=== PATIENT | female | born 1955 | race Caucasian/White ===

== ENCOUNTER 2023-01-14 15:35 | Inpatient (IN) | payer MEDICARE, MEDICAID ==
[~2023-01-14] VITALS: Ht 165.1 cm; Wt 54.0 kg
[~2023-01-14 15:35] MED LIST: ETOMIDATE 2MG/ML 10ML VIAL IV ONE; SUCCINYLCHOLINE CHLORIDE 200MG/10ML IV ONE
[2023-01-14] MEDS ORDERED: EPINEPHRINE 1:1000 1 MG/ML AMP IM ONE (15:45)
[2023-01-14] MEDS ORDERED: FAMOTIDINE 20MG/2ML VIAL IV ONE (15:45)
[2023-01-14] MEDS ORDERED: DIPHENHYDRAMINE 50MG/ML VIAL IV ONE (15:45)
[2023-01-14] MEDS ORDERED: METHYLPREDNISOLONE SOD SUCC 125 MG/2 ML VIAL IV ONE (15:45)
[2023-01-14] MEDS ORDERED: TRANEXAMIC ACID 1,000 MG/10 ML IV ONE (15:45)
[2023-01-14] MEDS ORDERED: ALBUTEROL (0.083%) 2.5MG/3ML NEB HHN SCH (16:00)
[2023-01-14 16:14] LABS: BASOPHILS % 0.3 % (0.0-2.0); EOSINOPHILS % 1.5 % (0.0-5.0); HEMATOCRIT. 34.6 % (36.0-48.0); MEAN CORPUSCULAR HEMOGLOBIN 27.3 pg (28.0-32.0); MEAN CORPUSCULAR VOLUME 85.6 fL (81.0-99.0); MEAN PLATELET VOLUME 10.5 fl (7.4-10.4); MONOCYTES % 8.4 % (2.0-8.0); NEUTROPHILS % 57.8 % (40.0-76.0); PLATELET 245 x1000/uL (130-400); RED BLOOD CELL COUNT 4.04 mill/uL (4.2-5.4); RED CELL DISTRIBUTION WIDTH 16.4 % (11.6-14.6)
[2023-01-14] MEDS ORDERED: PROPOFOL 10MG/ML 100ML 100 ML IV SCH (16:15)
[2023-01-14] MEDS ORDERED: SODIUM CHLORIDE 0.9% 1,000 ML IV ONE (16:15)
[2023-01-14 16:17] LABS: CHLORIDE 108 mEq/L (98-107)
[2023-01-14 16:20] LABS: PROTHROMBIN TIME 10.3 sec (9.6-11.0)
[2023-01-14] MEDS ORDERED: MIDAZOLAM HCL 100 MG in DEXT 5% WATER 80 ML IV ONE (16:45)
[2023-01-14] MEDS ORDERED: HYDRALAZINE 20MG/ML VIAL IV ONE (16:45)
[2023-01-14] MEDS ORDERED: MIDAZOLAM HCL 100 MG in SODIUM CHLORIDE 0.9% 100 ML IV ONE (16:45)
[2023-01-14 16:56] LABS: BG BASE EXCESS -3.5 mmol/L (-2.0-2.0); BG CARBOXYHEMOGLOBIN 0.6 % (0.5-1.5); BG DEOXYHEMOGLOBIN 1.1 % (0.0-5.0); BG FRACTION INSPIRED OXYGEN 100; BG HCO3 ACT 22.2 mmol/L (22.0-26.0); BG METHEMOGLOBIN 0.5 % (0.0-1.5); BG OXYGEN SATURATION 98.9 % (92.0-98.5); BG OXYHEMOGLOBIN 97.8 % (94.0-97.0); BG PCO2 42.2 mmHg (35.0-45.0); BG PH 7.338 (7.350-7.450); BG PO2 158.1 mmHg (75.0-100.0); BG SAMPLE SITE RIGHT RADIAL; BG TOTAL HEMOGLOBIN 10.9 g/dL (12.0-18.0); BG VENT MODE VENT - AC
[2023-01-14] MEDS ORDERED: LORAZEPAM 2MG/ML CPJ IV ONE ×2 (17:00→17:30)
[2023-01-14] MEDS ORDERED: FENTANYL 2500MCG/250ML PMX 250 ML IV ONE ×2 (17:00)
[2023-01-14] MEDS ORDERED: LIDOCAINE HCL/PF 1% 10 MG/ML 5ML VIAL INFIL ONE (18:00)
[2023-01-14] MEDS ORDERED: LIDOCAINE HCL/EPINEPHRINE 1%-EPI 1:100,000 20 ML VIAL INFIL ONE (18:00)
[2023-01-14 18:56] LABS: *AMPHETAMINES SCREEN URINE NEGATIVE (NEGATIVE); *BARBITURATES SCREEN URINE NEGATIVE (NEGATIVE); *BENZODIAZEPINES SCREEN URINE NEGATIVE (NEGATIVE); *COCAINE SCREEN URINE PRESUMTIVE POSITIVE (NEGATIVE); CANNABINOID URINE SCREEN NEGATIVE (NEGATIVE); METHADONE URINE SCREEN NEGATIVE (NEGATIVE); OPIATES URINE SCREEN NEGATIVE (NEGATIVE); PHENCYCLIDINE URINE SCREEN NEGATIVE (NEGATIVE)
[2023-01-14] MEDS ORDERED: PIPERACILLIN/TAZOBACTAM 3.375 G in DEXTROSE 5% WATER 50 ML IV SCH (19:15)
[2023-01-14] MEDS: SODIUM CHLORIDE 0.9% 1,000 ML IV SCH (19:15)
[2023-01-14] MEDS ORDERED: CLONIDINE 0.1MG TABLET PO PRN (19:15)
[2023-01-14] MEDS ORDERED: ONDANSETRON HCL 4MG/2ML INJ IV PRN (19:15)
[2023-01-14] MEDS ORDERED: IPRATROPIUM/ALBUTEROL 0.5-3(2.5)MG/3ML NEB HHN PRN ×2 (19:15→19:45)
[2023-01-14] MEDS ORDERED: DIPHENHYDRAMINE 50MG/ML VIAL IV PRN (19:15)
[2023-01-14] MEDS ORDERED: PIPERACILLIN/TAZ 3.375G PREMIX 50 ML IV ONE (19:45)
[2023-01-14] MEDS ORDERED: PROPOFOL 10MG/ML 100ML 100 ML IV PRN (19:45)
[2023-01-14] MEDS ORDERED: FENTANYL CITRATE/PF 2,500 MCG in SODIUM CHLORIDE 0.9% 200 ML IV PRN (19:45)
[2023-01-14] MEDS ORDERED: MIDAZOLAM HCL 100 MG in SODIUM CHLORIDE 0.9% 80 ML IV PRN (19:45)
[2023-01-14] MEDS ORDERED: VANCOMYCIN 1G PREMIX 200 ML IV ONE (19:45)
[2023-01-14] MEDS ORDERED: VANCOMYCIN 1G PREMIX 200 ML IV NR (21:00)
[2023-01-14] MEDS: METHYLPREDNISOLONE SOD SUCC 125 MG/2 ML VIAL IV SCH (22:08)
[2023-01-14] MEDS: PIPERACILLIN/TAZOBACTAM 3.375G in DEXT 5% WATER 50ML IV SCH (22:22)
[2023-01-14 23:50] VITALS: BP 111/69
[2023-01-15] VITALS (92 sets, daily range): BP systolic 32–229; BP diastolic 18–124
[2023-01-15] MEDS: IPRATROPIUM/ALBUTEROL 0.5-3(2.5)MG/3ML NEB HHN SCH ×5 (00:53→20:59)
[2023-01-15] MEDS: METHYLPREDNISOLONE SOD SUCC 125 MG/2 ML VIAL IV SCH ×4 (04:54→22:08)
[2023-01-15] MEDS: PIPERACILLIN/TAZOBACTAM 3.375G in DEXT 5% WATER 50ML IV SCH ×4 (05:15→23:27)
[2023-01-15] MEDS: MIDAZOLAM HCL 100 MG in SODIUM CHLORIDE 0.9% 80 ML IV PRN (05:35)
[2023-01-15 05:38] LABS: BASOPHILS % 0.1 % (0.0-2.0); HEMATOCRIT. 28.8 % (36.0-48.0); HEMOGLOBIN. 9.1 g/dL (12.0-16.0); LYMPHOCYTES % 7.1 % (20.0-50.0); MEAN CORPUSCULAR HEMOGLOBIN 27.6 pg (28.0-32.0); MEAN CORPUSCULAR VOLUME 86.9 fL (81.0-99.0); MEAN PLATELET VOLUME 10.2 fl (7.4-10.4); NEUTROPHILS % 86.8 % (40.0-76.0); PLATELET 169 x1000/uL (130-400); RED BLOOD CELL COUNT 3.31 mill/uL (4.2-5.4); RED CELL DISTRIBUTION WIDTH 16.2 % (11.6-14.6)
[2023-01-15 05:46] LABS: CHLORIDE 106 mEq/L (98-107)
[2023-01-15] MEDS ORDERED: POTASSIUM CHLORIDE INJ 40 MEQ in DEXT 5% WATER 250 ML IV ONE (07:00)
[2023-01-15] MEDS ORDERED: KCL 20MEQ/100ML X 2 FOR TOTAL KCL 40MEQ/200ML IV NR ×2 (07:00→08:45)
[2023-01-15 08:47] LABS: BG BASE EXCESS -0.9 mmol/L (-2.0-2.0); BG CARBOXYHEMOGLOBIN 0.4 % (0.5-1.5); BG DEOXYHEMOGLOBIN 0.9 % (0.0-5.0); BG FRACTION INSPIRED OXYGEN 60; BG HCO3 ACT 23.6 mmol/L (22.0-26.0); BG METHEMOGLOBIN 0.3 % (0.0-1.5); BG OXYGEN SATURATION 99.1 % (92.0-98.5); BG OXYHEMOGLOBIN 98.4 % (94.0-97.0); BG PCO2 38.2 mmHg (35.0-45.0); BG PH 7.408 (7.350-7.450); BG PO2 146.2 mmHg (75.0-100.0); BG SAMPLE SITE RIGHT RADIAL; BG TOTAL HEMOGLOBIN 8.6 g/dL (12.0-18.0); BG VENT MODE VENT - AC VC
[2023-01-15 09:52] LABS: CLARITY URINE CLEAR (CLEAR); COLOR URINE YELLOW (YELLOW); KETONES URINE NEGATIVE (NEGATIVE); LEUKOCYTE ESTERASE URINE NEGATIVE (NEGATIVE); NITRITE URINE NEGATIVE (NEGATIVE); OCCULT BLOOD URINE NEGATIVE (NEGATIVE); PROTEIN URINE 2+ (NEGATIVE); UROBILINOGEN URINE 0.2 E.U./dL (0.2-1.0)
[2023-01-15] MEDS ORDERED: POTASSIUM CHLORIDE INJ 40 MEQ in SODIUM CHLORIDE 0.9% 250 ML IV SCH (10:00)
[2023-01-15] MEDS: FAMOTIDINE 20MG/2ML VIAL IV SCH (10:43)
[2023-01-15] MEDS: FENTANYL 2500MCG/250ML PMX 250 ML IV PRN (15:12)
[2023-01-15] MEDS: SODIUM CHLORIDE 0.9% 1,000 ML IV SCH (15:14)
[2023-01-15] MEDS: DIPHENHYDRAMINE 50MG/ML VIAL IV SCH (17:52)
[2023-01-15] MEDS ORDERED: DIPHENHYDRAMINE 50MG/ML VIAL IV SCH (18:00)
[2023-01-15] MEDS: VANCOMYCIN 750MG PREMIX 150 ML IV SCH (21:00)
[2023-01-15] MEDS ORDERED: LIDOCAINE HCL 1% 10 MG/ML 10ML VIAL IJ NR (22:30)
[2023-01-16] VITALS (59 sets, daily range): BP systolic 124–217; BP diastolic 53–124
[2023-01-16] MEDS: IPRATROPIUM/ALBUTEROL 0.5-3(2.5)MG/3ML NEB HHN SCH ×6 (00:40→20:24)
[2023-01-16] MEDS: DIPHENHYDRAMINE 50MG/ML VIAL IV SCH ×4 (02:46→21:02)
[2023-01-16] MEDS: PIPERACILLIN/TAZOBACTAM 3.375G in DEXT 5% WATER 50ML IV SCH ×3 (05:05→21:01)
[2023-01-16] MEDS: METHYLPREDNISOLONE SOD SUCC 125 MG/2 ML VIAL IV SCH ×4 (05:06→22:09)
[2023-01-16 05:30] LABS: HEMATOCRIT. 26.4 % (36.0-48.0); HEMOGLOBIN. 8.3 g/dL (12.0-16.0); MEAN CORPUSCULAR HEMOGLOBIN 27.6 pg (28.0-32.0); MEAN CORPUSCULAR VOLUME 87.9 fL (81.0-99.0); MEAN PLATELET VOLUME 10.2 fl (7.4-10.4); PLATELET 171 x1000/uL (130-400); RED BLOOD CELL COUNT 3.01 mill/uL (4.2-5.4); RED CELL DISTRIBUTION WIDTH 16.4 % (11.6-14.6)
[2023-01-16 07:34] LABS: BG CARBOXYHEMOGLOBIN 0.1 % (0.5-1.5); BG DEOXYHEMOGLOBIN 0.6 % (0.0-5.0); BG FRACTION INSPIRED OXYGEN 50; BG HCO3 ACT 23.1 mmol/L (22.0-26.0); BG METHEMOGLOBIN 0.4 % (0.0-1.5); BG OXYGEN SATURATION 99.4 % (92.0-98.5); BG OXYHEMOGLOBIN 98.9 % (94.0-97.0); BG PCO2 35.4 mmHg (35.0-45.0); BG PEEP (cmH2O) 0 cmH2O; BG PH 7.432 (7.350-7.450); BG PO2 216.7 mmHg (75.0-100.0); BG SAMPLE SITE RIGHT RADIAL; BG TOTAL HEMOGLOBIN 8.4 g/dL (12.0-18.0); BG VENT MODE VENT - AC/VC
[2023-01-16] MEDS: FAMOTIDINE 20MG/2ML VIAL IV SCH (09:05)
[2023-01-16] MEDS: MIDAZOLAM HCL 100 MG in SODIUM CHLORIDE 0.9% 80 ML IV PRN (09:06)
[2023-01-16] MEDS: FENTANYL 2500MCG/250ML PMX 250 ML IV PRN (09:44)
[2023-01-16 11:02] LABS: PLATELET ESTIMATE NORMAL
[2023-01-16] MEDS: SODIUM CHLORIDE 0.9% 1,000 ML IV SCH (15:15)
[2023-01-16] MEDS: HYDRALAZINE 20MG/ML VIAL IV PRN (16:52)
[2023-01-16] MEDS: VANCOMYCIN 750MG PREMIX 150 ML IV SCH (21:02)
[2023-01-17] VITALS (51 sets, daily range): BP systolic 144–210; BP diastolic 64–118
[2023-01-17] MEDS: IPRATROPIUM/ALBUTEROL 0.5-3(2.5)MG/3ML NEB HHN SCH ×6 (00:39→20:12)
[2023-01-17 05:13] LABS: HEMATOCRIT. 26.1 % (36.0-48.0); HEMOGLOBIN. 8.2 g/dL (12.0-16.0); MEAN CORPUSCULAR HEMOGLOBIN 27.1 pg (28.0-32.0); MEAN CORPUSCULAR VOLUME 85.9 fL (81.0-99.0); MEAN PLATELET VOLUME 9.9 fl (7.4-10.4); PLATELET 215 x1000/uL (130-400); RED BLOOD CELL COUNT 3.04 mill/uL (4.2-5.4); RED CELL DISTRIBUTION WIDTH 16.5 % (11.6-14.6)
[2023-01-17] MEDS: PIPERACILLIN/TAZOBACTAM 3.375G in DEXT 5% WATER 50ML IV SCH ×2 (05:59→13:28)
[2023-01-17] MEDS: MIDAZOLAM HCL 100 MG in SODIUM CHLORIDE 0.9% 80 ML IV PRN ×3 (06:04→17:15)
[2023-01-17 07:25] LABS: BG BASE EXCESS -2.5 mmol/L (-2.0-2.0); BG CARBOXYHEMOGLOBIN 0.3 % (0.5-1.5); BG DEOXYHEMOGLOBIN 3.1 % (0.0-5.0); BG FRACTION INSPIRED OXYGEN 40; BG HCO3 ACT 21.8 mmol/L (22.0-26.0); BG METHEMOGLOBIN 0.3 % (0.0-1.5); BG OXYGEN SATURATION 96.9 % (92.0-98.5); BG OXYHEMOGLOBIN 96.3 % (94.0-97.0); BG PCO2 35.3 mmHg (35.0-45.0); BG PEEP (cmH2O) 0 cmH2O; BG PH 7.408 (7.350-7.450); BG PO2 95.1 mmHg (75.0-100.0); BG SAMPLE SITE RIGHT RADIAL; BG TOTAL HEMOGLOBIN 9.6 g/dL (12.0-18.0); BG VENT MODE VENT - AC/VC
[2023-01-17] MEDS: HYDRALAZINE 20MG/ML VIAL IV PRN ×3 (08:58→22:53)
[2023-01-17] MEDS: FAMOTIDINE 20MG/2ML VIAL IV SCH (08:58)
[2023-01-17] MEDS: DIPHENHYDRAMINE 50MG/ML VIAL IV SCH ×2 (08:59→17:12)
[2023-01-17] MEDS: METHYLPREDNISOLONE SOD SUCC 125 MG/2 ML VIAL IV SCH ×3 (09:04→22:21)
[2023-01-17 09:39] LABS: PLATELET ESTIMATE NORMAL
[2023-01-17] MEDS ORDERED: LIDOCAINE HCL 1% 10 MG/ML 10ML VIAL ONE (12:43)
[2023-01-17] MEDS: SODIUM CHLORIDE 0.9% 1,000 ML IV SCH (13:28)
[2023-01-17] MEDS: FENTANYL 2500MCG/250ML PMX 250 ML IV PRN (15:47)
[2023-01-17] MEDS ORDERED: VANCOMYCIN 500MG PREMIX 100 ML IV SCH (23:00)
[2023-01-18] VITALS (42 sets, daily range): BP systolic 128–215; BP diastolic 63–100
[2023-01-18] MEDS: IPRATROPIUM/ALBUTEROL 0.5-3(2.5)MG/3ML NEB HHN SCH ×6 (00:11→20:37)
[2023-01-18] MEDS: DIPHENHYDRAMINE 50MG/ML VIAL IV SCH ×3 (03:34→18:06)
[2023-01-18] MEDS: METHYLPREDNISOLONE SOD SUCC 125 MG/2 ML VIAL IV SCH ×2 (03:44→09:16)
[2023-01-18] MEDS: HYDRALAZINE 20MG/ML VIAL IV PRN ×3 (04:10→19:37)
[2023-01-18] MEDS ORDERED: LABETALOL 5MG/ML SYR 20 MG/4 ML SYRINGE IV NR (05:15)
[2023-01-18 05:40] LABS: HEMATOCRIT. 25.9 % (36.0-48.0); HEMOGLOBIN. 8.4 g/dL (12.0-16.0); LYMPHOCYTES % 7.5 % (20.0-50.0); MEAN CORPUSCULAR HEMOGLOBIN 27.7 pg (28.0-32.0); MEAN CORPUSCULAR VOLUME 85.5 fL (81.0-99.0); MEAN PLATELET VOLUME 9.8 fl (7.4-10.4); MONOCYTES % 5.7 % (2.0-8.0); NEUTROPHILS % 86.8 % (40.0-76.0); PLATELET 218 x1000/uL (130-400); RED BLOOD CELL COUNT 3.03 mill/uL (4.2-5.4); RED CELL DISTRIBUTION WIDTH 16.3 % (11.6-14.6)
[2023-01-18] MEDS: AMLODIPINE 10MG TABLET PO SCH (09:14)
[2023-01-18] MEDS: KCL 20MEQ/100ML PREMIX 100 ML IV SCH ×2 (09:16→11:25)
[2023-01-18] MEDS: FAMOTIDINE 20MG/2ML VIAL IV SCH (09:16)
[2023-01-18] MEDS ORDERED: SODIUM CHLORIDE 0.9% 1,000 ML IV SCH (09:30)
[2023-01-18] MEDS ORDERED: ISOSORBIDE MONONITRATE 30MG TABLET SR 24HR PO SCH (10:15)
[2023-01-18] MEDS: METHYLPREDNISOLONE SOD SUCC 40 MG/ML VIAL IV SCH ×2 (12:06→23:58)
[2023-01-18] MEDS ORDERED: HYDRALAZINE 20MG/ML VIAL IV SCH (13:00)
[2023-01-18] MEDS: MIDAZOLAM HCL 100 MG in SODIUM CHLORIDE 0.9% 80 ML IV PRN (13:26)
[2023-01-18] MEDS ORDERED: METOPROLOL TARTRATE 5MG/5ML VIAL IV SCH (18:00)
[2023-01-18] MEDS: FENTANYL 2500MCG/250ML PMX 250 ML IV PRN (18:07)
[2023-01-19] VITALS (55 sets, daily range): BP systolic 145–217; BP diastolic 63–103
[2023-01-19] MEDS: LABETALOL 5MG/ML SYR 20 MG/4 ML SYRINGE IV PRN ×2 (00:05→13:41)
[2023-01-19] MEDS: IPRATROPIUM/ALBUTEROL 0.5-3(2.5)MG/3ML NEB HHN SCH ×6 (00:15→21:35)
[2023-01-19] MEDS: HYDRALAZINE 20MG/ML VIAL IV PRN ×3 (00:58→11:47)
[2023-01-19] MEDS: DIPHENHYDRAMINE 50MG/ML VIAL IV SCH ×3 (01:02→17:46)
[2023-01-19 05:30] LABS: HEMATOCRIT. 27.9 % (36.0-48.0); HEMOGLOBIN. 8.7 g/dL (12.0-16.0); MEAN CORPUSCULAR HEMOGLOBIN 26.8 pg (28.0-32.0); MEAN CORPUSCULAR VOLUME 86.1 fL (81.0-99.0); MEAN PLATELET VOLUME 9.6 fl (7.4-10.4); PLATELET 218 x1000/uL (130-400); RED BLOOD CELL COUNT 3.24 mill/uL (4.2-5.4); RED CELL DISTRIBUTION WIDTH 16.4 % (11.6-14.6)
[2023-01-19] MEDS: METHYLPREDNISOLONE SOD SUCC 40 MG/ML VIAL IV SCH ×2 (06:42→18:20)
[2023-01-19 08:10] LABS: PLATELET ESTIMATE NORMAL
[2023-01-19] MEDS: AMLODIPINE 10MG TABLET PO SCH (08:32)
[2023-01-19] MEDS: FAMOTIDINE 20MG/2ML VIAL IV SCH (08:32)
[2023-01-19] MEDS: CARVEDILOL 12.5MG TABLET PO SCH ×2 (08:32→22:25)
[2023-01-19] MEDS ORDERED: CHLORTHALIDONE 25MG TABLET PO SCH (09:00)
[2023-01-19 09:56] LABS: BG BASE EXCESS -2.3 mmol/L (-2.0-2.0); BG CARBOXYHEMOGLOBIN 0.3 % (0.5-1.5); BG DEOXYHEMOGLOBIN 2.6 % (0.0-5.0); BG FRACTION INSPIRED OXYGEN 40; BG HCO3 ACT 21.8 mmol/L (22.0-26.0); BG METHEMOGLOBIN 0.4 % (0.0-1.5); BG OXYGEN SATURATION 97.4 % (92.0-98.5); BG OXYHEMOGLOBIN 96.7 % (94.0-97.0); BG PCO2 34.4 mmHg (35.0-45.0); BG PH 7.419 (7.350-7.450); BG PO2 104.2 mmHg (75.0-100.0); BG TOTAL HEMOGLOBIN 9.2 g/dL (12.0-18.0); BG VENT MODE VENT - AC
[2023-01-19] MEDS: CHLORTHALIDONE 25MG TABLET PO SCH (10:01)
[2023-01-19] MEDS: ENOXAPARIN 30MG/0.3ML SYR SUBCUT SCH (10:02)
[2023-01-19] MEDS ORDERED: LORAZEPAM 2MG/ML CPJ IV PRN ×3 (12:30→19:00)
[2023-01-19] MEDS ORDERED: POTASSIUM CHLORIDE INJ 40 MEQ in DEXT 5% WATER 250 ML IV ONE (13:30)
[2023-01-19 13:34] LABS: BG BASE EXCESS -1.1 mmol/L (-2.0-2.0); BG CARBOXYHEMOGLOBIN 0.3 % (0.5-1.5); BG DEOXYHEMOGLOBIN 2.9 % (0.0-5.0); BG FRACTION INSPIRED OXYGEN 40; BG HCO3 ACT 22.5 mmol/L (22.0-26.0); BG METHEMOGLOBIN 0.6 % (0.0-1.5); BG OXYGEN SATURATION 97.1 % (92.0-98.5); BG OXYHEMOGLOBIN 96.2 % (94.0-97.0); BG PCO2 33.4 mmHg (35.0-45.0); BG PH 7.446 (7.350-7.450); BG PO2 97.3 mmHg (75.0-100.0); BG SAMPLE SITE RIGHT RADIAL; BG TOTAL HEMOGLOBIN 9.7 g/dL (12.0-18.0); BG VENT MODE VENT - CPAP
[2023-01-19] MEDS: KCL 20MEQ/100ML X 2 FOR TOTAL KCL 40MEQ/200ML IV SCH ×2 (13:53→16:22)
[2023-01-19] MEDS: CLONIDINE 0.2MG TABLET PO PRN (16:22)
[2023-01-19] MEDS: NICARDIPINE 50 MG in SODIUM CHLORIDE 0.9% 230 ML IV PRN (20:33)
[2023-01-20] VITALS (52 sets, daily range): BP systolic 134–172; BP diastolic 59–99
[2023-01-20] MEDS: METHYLPREDNISOLONE SOD SUCC 40 MG/ML VIAL IV SCH ×2 (00:29→09:19)
[2023-01-20] MEDS: NICARDIPINE 50 MG in SODIUM CHLORIDE 0.9% 230 ML IV PRN ×4 (02:11→17:39)
[2023-01-20] MEDS: DIPHENHYDRAMINE 50MG/ML VIAL IV SCH ×2 (05:04→17:39)
[2023-01-20 06:37] LABS: HEMATOCRIT 29.7 % (36.0-48.0); HEMOGLOBIN 9.5 g/dL (12.0-16.0); MEAN CORPUSCULAR VOLUME 84.8 fL (81.0-99.0); PLATELET 249 x1000/uL (130-400); RED CELL DISTRIBUTION WIDTH 16.1 % (11.6-14.6)
[2023-01-20] MEDS: AMLODIPINE 10MG TABLET PO SCH (09:19)
[2023-01-20] MEDS: FAMOTIDINE 20MG/2ML VIAL IV SCH (09:19)
[2023-01-20] MEDS: ACETAMINOPHEN 325MG TABLET PO PRN ×2 (09:19→14:11)
[2023-01-20] MEDS: CARVEDILOL 12.5MG TABLET PO SCH ×2 (09:20→20:29)
[2023-01-20] MEDS: ENOXAPARIN 30MG/0.3ML SYR SUBCUT SCH (09:20)
[2023-01-20] MEDS: CHLORTHALIDONE 25MG TABLET PO SCH (09:20)
[2023-01-20] MEDS: LIDOCAINE 5% PATCH TOP SCH (13:30)
[2023-01-20] MEDS ORDERED: LOSARTAN POTASSIUM 50 MG TABLET PO SCH (13:30)
[2023-01-20] MEDS ORDERED: HYDRALAZINE HCL 50MG TABLET PO SCH (14:00)
[2023-01-20] MEDS ORDERED: HYDRALAZINE HCL 100MG TABLET PO SCH (14:00)
[2023-01-20] MEDS: DILTIAZEM HCL 60MG TABLET PO SCH (17:38)
[2023-01-20] MEDS ORDERED: LABETALOL HCL 100MG TABLET PO SCH (21:00)
[2023-01-20] MEDS: HYDRALAZINE HCL 100MG TABLET PO SCH (22:45)
[2023-01-21] VITALS (46 sets, daily range): BP systolic 119–170; BP diastolic 53–86
[2023-01-21] MEDS: DILTIAZEM HCL 60MG TABLET PO SCH ×4 (00:23→17:47)
[2023-01-21] MEDS: NICARDIPINE 50 MG in SODIUM CHLORIDE 0.9% 230 ML IV PRN ×2 (01:26→08:59)
[2023-01-21] MEDS: HYDRALAZINE HCL 100MG TABLET PO SCH ×3 (05:24→20:25)
[2023-01-21] MEDS: DIPHENHYDRAMINE 50MG/ML VIAL IV SCH ×2 (05:24→17:47)
[2023-01-21 06:59] LABS: HEMATOCRIT. 28.8 % (36.0-48.0); HEMOGLOBIN. 9.3 g/dL (12.0-16.0); LYMPHOCYTES % 10.3 % (20.0-50.0); MEAN CORPUSCULAR HEMOGLOBIN 27.1 pg (28.0-32.0); MEAN CORPUSCULAR VOLUME 84.3 fL (81.0-99.0); MEAN PLATELET VOLUME 9.3 fl (7.4-10.4); MONOCYTES % 5.9 % (2.0-8.0); NEUTROPHILS % 83.8 % (40.0-76.0); PLATELET 238 x1000/uL (130-400); RED BLOOD CELL COUNT 3.42 mill/uL (4.2-5.4); RED CELL DISTRIBUTION WIDTH 16.1 % (11.6-14.6)
[2023-01-21 07:09] LABS: PHOSPHORUS 3.7 mg/dL (2.5-4.9)
[2023-01-21] MEDS ORDERED: NALOXONE HCL 0.4MG/ML VIAL IV PRN (08:45)
[2023-01-21] MEDS: FAMOTIDINE 20MG/2ML VIAL IV SCH (08:53)
[2023-01-21] MEDS: AMLODIPINE 10MG TABLET PO SCH (08:54)
[2023-01-21] MEDS: CHLORTHALIDONE 25MG TABLET PO SCH (08:54)
[2023-01-21] MEDS: HYDROCODONE/ACETAMINOPHEN 5/325MG TABLET PO PRN ×3 (08:54→20:27)
[2023-01-21] MEDS: LIDOCAINE 5% PATCH TOP SCH (08:55)
[2023-01-21] MEDS: ENOXAPARIN 30MG/0.3ML SYR SUBCUT SCH (08:55)
[2023-01-21] MEDS: CARVEDILOL 12.5MG TABLET PO SCH ×2 (08:56→20:26)
[2023-01-21] MEDS ORDERED: CARVEDILOL 12.5MG TABLET PO NR (10:45)
[2023-01-21] MEDS: CEFTRIAXONE 1,000 MG in DEXTROSE 5% WATER 50 ML IV SCH (11:16)
[2023-01-21] MEDS: CLONIDINE 0.1MG TABLET PO SCH ×2 (11:17→14:29)
[2023-01-21] MEDS: ASPIRIN 81MG TABLET PO SCH (11:17)
[2023-01-21] MEDS ORDERED: HYDROMORPHONE HCL/PF 2MG/ML CPJ IV NR (11:30)
[2023-01-21] MEDS ORDERED: LIDOCAINE HCL 1% 20ML VIAL (Pyxis) INJ INFIL NR (11:30)
[2023-01-21] MEDS: AZITHROMYCIN 500 MG in DEXT 5% WATER 250 ML IV SCH (19:32)
[2023-01-21] MEDS: CLONIDINE 0.2MG TABLET PO SCH (20:26)
[2023-01-22] MEDS: DILTIAZEM HCL 60MG TABLET PO SCH ×2 (00:03→05:26)
[2023-01-22 00:05] VITALS: BP 159/64
[2023-01-22 04:00] VITALS: BP 146/66
[2023-01-22] MEDS: HYDROCODONE/ACETAMINOPHEN 5/325MG TABLET PO PRN ×3 (04:46→21:47)
[2023-01-22] MEDS: HYDRALAZINE HCL 100MG TABLET PO SCH ×3 (05:26→21:01)
[2023-01-22] MEDS: DIPHENHYDRAMINE 50MG/ML VIAL IV SCH (05:26)
[2023-01-22] MEDS: CLONIDINE 0.2MG TABLET PO SCH ×3 (05:27→21:01)
[2023-01-22 06:59] LABS: BASOPHILS % 0.2 % (0.0-2.0); EOSINOPHILS % 0.8 % (0.0-5.0); HEMATOCRIT. 26.5 % (36.0-48.0); HEMOGLOBIN. 8.5 g/dL (12.0-16.0); LYMPHOCYTES % 26.3 % (20.0-50.0); MEAN CORPUSCULAR HEMOGLOBIN 27.8 pg (28.0-32.0); MEAN CORPUSCULAR VOLUME 86.6 fL (81.0-99.0); MEAN PLATELET VOLUME 9.9 fl (7.4-10.4); MONOCYTES % 7.3 % (2.0-8.0); NEUTROPHILS % 65.4 % (40.0-76.0); PLATELET 214 x1000/uL (130-400); RED BLOOD CELL COUNT 3.06 mill/uL (4.2-5.4); RED CELL DISTRIBUTION WIDTH 16.1 % (11.6-14.6)
[2023-01-22 08:15] VITALS: BP 157/62
[2023-01-22] MEDS: ASPIRIN 81MG TABLET PO SCH (08:33)
[2023-01-22] MEDS: ENOXAPARIN 30MG/0.3ML SYR SUBCUT SCH (08:33)
[2023-01-22] MEDS: FAMOTIDINE 20MG/2ML VIAL IV SCH (08:33)
[2023-01-22] MEDS: LIDOCAINE 5% PATCH TOP SCH (08:34)
[2023-01-22] MEDS: CARVEDILOL 12.5MG TABLET PO SCH (08:35)
[2023-01-22] MEDS: CHLORTHALIDONE 25MG TABLET PO SCH (08:35)
[2023-01-22] MEDS ORDERED: AMLODIPINE 10MG TABLET PO SCH (11:30)
[2023-01-22] MEDS: CEFTRIAXONE 1,000 MG in DEXTROSE 5% WATER 50 ML IV SCH (11:48)
[2023-01-22] MEDS: DILTIAZEM HCL 90MG TABLET PO SCH ×2 (11:51→18:00)
[2023-01-22 12:11] VITALS: BP 138/54
[2023-01-22 13:11] LABS: C1 ESTERASE INHIBITOR 35 mg/dL (21-39)
[2023-01-22 16:00] VITALS: BP 102/49
[2023-01-22] MEDS: AZITHROMYCIN 500 MG in DEXT 5% WATER 250 ML IV SCH (18:23)
[2023-01-22 20:00] VITALS: BP 117/51
[2023-01-23] VITALS: BP 139/61
[2023-01-23] MEDS: DILTIAZEM HCL 90MG TABLET PO SCH ×4 (00:35→18:00)
[2023-01-23] MEDS: HYDROCODONE/ACETAMINOPHEN 5/325MG TABLET PO PRN ×3 (03:52→21:55)
[2023-01-23 03:53] VITALS: BP 163/56
[2023-01-23] MEDS: HYDRALAZINE HCL 100MG TABLET PO SCH ×3 (05:10→21:54)
[2023-01-23] MEDS: CLONIDINE 0.2MG TABLET PO SCH ×3 (05:11→21:54)
[2023-01-23 08:00] VITALS: BP 130/56
[2023-01-23] MEDS: AMLODIPINE 10MG TABLET PO SCH ×2 (09:39→17:00)
[2023-01-23] MEDS: CHLORTHALIDONE 25MG TABLET PO SCH (09:39)
[2023-01-23] MEDS: ASPIRIN 81MG TABLET PO SCH (09:39)
[2023-01-23] MEDS: FAMOTIDINE 20MG/2ML VIAL IV SCH (09:39)
[2023-01-23] MEDS: ENOXAPARIN 30MG/0.3ML SYR SUBCUT SCH (09:40)
[2023-01-23] MEDS: LIDOCAINE 5% PATCH TOP SCH (09:40)
[2023-01-23] MEDS: CEFTRIAXONE 1,000 MG in DEXTROSE 5% WATER 50 ML IV SCH (10:44)
[2023-01-23 12:00] VITALS: BP 138/56
[2023-01-23] MEDS: FLUOXETINE HCL 10 MG CAPSULE PO SCH (14:05)
[2023-01-23] MEDS: QUETIAPINE FUMARATE 50MG TABLET PO SCH ×2 (14:05→21:54)
[2023-01-23 14:51] LABS: EOSINOPHILS % 0.9 % (0.0-5.0); HEMATOCRIT. 26.1 % (36.0-48.0); HEMOGLOBIN. 8.4 g/dL (12.0-16.0); MEAN CORPUSCULAR HEMOGLOBIN 27.3 pg (28.0-32.0); MEAN PLATELET VOLUME 9.7 fl (7.4-10.4); MONOCYTES % 9.3 % (2.0-8.0); NEUTROPHILS % 69.8 % (40.0-76.0); PLATELET 240 x1000/uL (130-400); RED BLOOD CELL COUNT 3.07 mill/uL (4.2-5.4); RED CELL DISTRIBUTION WIDTH 16.3 % (11.6-14.6)
[2023-01-23 16:00] VITALS: BP 125/60
[2023-01-23] MEDS: AZITHROMYCIN 500 MG in DEXT 5% WATER 250 ML IV SCH (18:00)
[2023-01-23 20:00] VITALS: BP 148/57
[2023-01-24] VITALS: BP 126/51
[2023-01-24 04:00] VITALS: BP 125/63
[2023-01-24] MEDS: CLONIDINE 0.2MG TABLET PO SCH ×3 (06:00→21:27)
[2023-01-24] MEDS: HYDRALAZINE HCL 100MG TABLET PO SCH ×3 (06:00→21:26)
[2023-01-24] MEDS: DILTIAZEM HCL 90MG TABLET PO SCH ×5 (06:00→23:46)
[2023-01-24 08:00] VITALS: BP 170/71
[2023-01-24] MEDS ORDERED: POTASSIUM CHLORIDE 20MEQ TABLET SR PO SCH (08:30)
[2023-01-24] MEDS: FAMOTIDINE 20MG/2ML VIAL IV SCH (08:46)
[2023-01-24] MEDS: QUETIAPINE FUMARATE 50MG TABLET PO SCH ×2 (08:47→21:00)
[2023-01-24] MEDS: CHLORTHALIDONE 25MG TABLET PO SCH (08:47)
[2023-01-24] MEDS: FLUOXETINE HCL 10 MG CAPSULE PO SCH (08:47)
[2023-01-24] MEDS: ASPIRIN 81MG TABLET PO SCH (08:47)
[2023-01-24] MEDS: AMLODIPINE 10MG TABLET PO SCH ×2 (08:47→17:00)
[2023-01-24] MEDS: LIDOCAINE 5% PATCH TOP SCH (08:48)
[2023-01-24] MEDS: ENOXAPARIN 30MG/0.3ML SYR SUBCUT SCH (08:48)
[2023-01-24] MEDS: HYDROCODONE/ACETAMINOPHEN 5/325MG TABLET PO PRN (08:49)
[2023-01-24] MEDS: CLONIDINE 0.2MG TABLET PO PRN (08:49)
[2023-01-24] MEDS ORDERED: IPRATROPIUM/ALBUTEROL 0.5-3(2.5)MG/3ML NEB HHN ONE (10:00)
[2023-01-24] MEDS ORDERED: IPRATROPIUM/ALBUTEROL 0.5-3(2.5)MG/3ML NEB HHN PRN (10:00)
[2023-01-24] MEDS ORDERED: ALBUTEROL (0.083%) 2.5MG/3ML NEB HHN PRN (10:15)
[2023-01-24] MEDS ORDERED: IPRATROPIUM BROMIDE (0.02%) 0.5MG/2.5ML NEB HHN PRN (10:15)
[2023-01-24] MEDS ORDERED: IPRATROPIUM BROMIDE (0.02%) 0.5MG/2.5ML NEB HHN NR (10:15)
[2023-01-24] MEDS ORDERED: ALBUTEROL (0.083%) 2.5MG/3ML NEB HHN NR (10:15)
[2023-01-24 10:28] LABS: HEMATOCRIT 25.3 % (36.0-48.0); HEMOGLOBIN 8.1 g/dL (12.0-16.0); MEAN CORPUSCULAR VOLUME 84.5 fL (81.0-99.0); PLATELET 251 x1000/uL (130-400); RED BLOOD CELL COUNT 2.99 mill/uL (4.2-5.4); RED CELL DISTRIBUTION WIDTH 16.4 % (11.6-14.6)
[2023-01-24] MEDS: CEFTRIAXONE 1,000 MG in DEXTROSE 5% WATER 50 ML IV SCH (11:00)
[2023-01-24 12:00] VITALS: BP 129/79
[2023-01-24] MEDS ORDERED: MORPHINE SULFATE 2 MG/ML CPJ (NOT FOR IM USE) IV PRN (13:45)
[2023-01-24] MEDS ORDERED: LIDOCAINE HCL 1% 20ML VIAL (Pyxis) INJ INFIL ONE (14:00)
[2023-01-24 16:00] VITALS: BP 130/56
[2023-01-24] MEDS: AZITHROMYCIN 500 MG in DEXT 5% WATER 250 ML IV SCH (18:00)
[2023-01-24 20:00] VITALS: BP 156/62
[2023-01-25] VITALS (7 sets, daily range): BP systolic 118–151; BP diastolic 55–80
[2023-01-25] MEDS: DILTIAZEM HCL 90MG TABLET PO SCH ×3 (05:45→18:33)
[2023-01-25] MEDS: HYDRALAZINE HCL 100MG TABLET PO SCH ×3 (05:45→22:00)
[2023-01-25] MEDS: CLONIDINE 0.2MG TABLET PO SCH ×3 (05:45→22:00)
[2023-01-25 08:09] LABS: BASOPHILS % 0.1 % (0.0-2.0); EOSINOPHILS % 0.5 % (0.0-5.0); HEMATOCRIT. 27.1 % (36.0-48.0); HEMOGLOBIN. 8.8 g/dL (12.0-16.0); LYMPHOCYTES % 16.1 % (20.0-50.0); MEAN CORPUSCULAR HEMOGLOBIN 27.2 pg (28.0-32.0); MEAN CORPUSCULAR VOLUME 83.8 fL (81.0-99.0); MEAN PLATELET VOLUME 9.5 fl (7.4-10.4); MONOCYTES % 9.4 % (2.0-8.0); NEUTROPHILS % 73.9 % (40.0-76.0); PLATELET 332 x1000/uL (130-400); RED BLOOD CELL COUNT 3.24 mill/uL (4.2-5.4); RED CELL DISTRIBUTION WIDTH 16.2 % (11.6-14.6)
[2023-01-25] MEDS: FLUOXETINE HCL 10 MG CAPSULE PO SCH (09:00)
[2023-01-25] MEDS: QUETIAPINE FUMARATE 50MG TABLET PO SCH ×3 (09:00→21:00)
[2023-01-25] MEDS: AMLODIPINE 10MG TABLET PO SCH ×2 (09:00→18:32)
[2023-01-25] MEDS: LIDOCAINE 5% PATCH TOP SCH (09:00)
[2023-01-25] MEDS: FAMOTIDINE 20MG/2ML VIAL IV SCH (09:00)
[2023-01-25] MEDS: ENOXAPARIN 30MG/0.3ML SYR SUBCUT SCH (09:00)
[2023-01-25] MEDS: CHLORTHALIDONE 25MG TABLET PO SCH (09:00)
[2023-01-25] MEDS: ASPIRIN 81MG TABLET PO SCH (09:00)
[2023-01-25] MEDS ORDERED: POTASSIUM CHLORIDE 20MEQ TABLET SR PO SCH (10:30)
[2023-01-25 13:12] LABS: C1 ESTERASE INHIBITOR FUNCTNL > 93 (.)
[2023-01-25] MEDS: AZITHROMYCIN 500 MG in DEXT 5% WATER 250 ML IV SCH (18:32)
[2023-01-26] MEDS: CLONIDINE 0.2MG TABLET PO SCH ×3 (06:00→22:00)
[2023-01-26] MEDS: DILTIAZEM HCL 90MG TABLET PO SCH ×4 (07:51→17:45)
[2023-01-26] MEDS: HYDROCODONE/ACETAMINOPHEN 5/325MG TABLET PO PRN (07:52)
[2023-01-26] MEDS: HYDRALAZINE HCL 100MG TABLET PO SCH ×3 (07:53→21:52)
[2023-01-26 08:00] VITALS: BP 143/58
[2023-01-26] MEDS: LIDOCAINE 5% PATCH TOP SCH (10:01)
[2023-01-26] MEDS: ENOXAPARIN 30MG/0.3ML SYR SUBCUT SCH (10:02)
[2023-01-26] MEDS: FLUOXETINE HCL 10 MG CAPSULE PO SCH (10:02)
[2023-01-26] MEDS: CHLORTHALIDONE 25MG TABLET PO SCH (10:02)
[2023-01-26] MEDS: FAMOTIDINE 20MG/2ML VIAL IV SCH (10:04)
[2023-01-26] MEDS: ASPIRIN 81MG TABLET PO SCH (10:04)
[2023-01-26] MEDS: QUETIAPINE FUMARATE 50MG TABLET PO SCH ×2 (10:04→21:51)
[2023-01-26] MEDS: AMLODIPINE 10MG TABLET PO SCH ×2 (10:04→17:44)
[2023-01-26 12:00] VITALS: BP 98/45
[2023-01-26] MEDS ORDERED: ASPI-1160 PO (12:06)
[2023-01-26] MEDS ORDERED: AMLO10TA80 PO (12:06)
[2023-01-26] MEDS ORDERED: CHLO25TA2 PO (12:06)
[2023-01-26] MEDS ORDERED: HYDR100T26 PO (12:06)
[2023-01-26] MEDS ORDERED: QUET50TA PO (12:06)
[2023-01-26] MEDS ORDERED: DILT90TA2 PO (12:06)
[2023-01-26] MEDS ORDERED: FLUOX10 PO (12:06)
[2023-01-26] MEDS ORDERED: CLON0.2T PO (12:06)
[2023-01-26 16:00] VITALS: BP 130/60
[2023-01-26 20:00] VITALS: BP 142/63
[2023-01-26] MEDS: ACETAMINOPHEN 325MG TABLET PO PRN (21:52)
[2023-01-27] VITALS (15 sets, daily range): BP systolic 78–154; BP diastolic 41–93
[2023-01-27] MEDS: CLONIDINE 0.2MG TABLET PO SCH (06:00)
[2023-01-27] MEDS: HYDRALAZINE HCL 100MG TABLET PO SCH ×3 (06:00→22:01)
[2023-01-27] MEDS: DILTIAZEM HCL 90MG TABLET PO SCH ×5 (06:00→23:58)
[2023-01-27] MEDS ORDERED: NALOXONE HCL 0.4MG/ML VIAL IV PRN (09:30)
[2023-01-27] MEDS: FLUOXETINE HCL 10 MG CAPSULE PO SCH (09:53)
[2023-01-27] MEDS: ASPIRIN 81MG TABLET PO SCH (09:54)
[2023-01-27] MEDS: FAMOTIDINE 20MG/2ML VIAL IV SCH (09:54)
[2023-01-27] MEDS: QUETIAPINE FUMARATE 50MG TABLET PO SCH ×2 (09:54→20:18)
[2023-01-27] MEDS: AMLODIPINE 10MG TABLET PO SCH ×2 (09:54→16:50)
[2023-01-27] MEDS: HYDROCODONE/ACETAMINOPHEN 5/325MG TABLET PO PRN ×2 (09:54→22:02)
[2023-01-27] MEDS: ENOXAPARIN 30MG/0.3ML SYR SUBCUT SCH (09:55)
[2023-01-27] MEDS: LIDOCAINE 5% PATCH TOP SCH (10:01)
[2023-01-27] MEDS: SODIUM CHLORIDE 0.9% 1,000 ML IV SCH ×2 (10:02→23:02)
[2023-01-27 10:05] LABS: BASOPHILS % 0.1 % (0.0-2.0); EOSINOPHILS % 0.2 % (0.0-5.0); HEMATOCRIT. 27.7 % (36.0-48.0); HEMOGLOBIN. 9.1 g/dL (12.0-16.0); LYMPHOCYTES % 7.8 % (20.0-50.0); MEAN CORPUSCULAR HEMOGLOBIN 27.4 pg (28.0-32.0); MEAN CORPUSCULAR VOLUME 83.6 fL (81.0-99.0); MEAN PLATELET VOLUME 9.1 fl (7.4-10.4); MONOCYTES % 8.3 % (2.0-8.0); NEUTROPHILS % 83.6 % (40.0-76.0); PLATELET 360 x1000/uL (130-400); RED BLOOD CELL COUNT 3.32 mill/uL (4.2-5.4); RED CELL DISTRIBUTION WIDTH 16.6 % (11.6-14.6)
[2023-01-27] MEDS ORDERED: SODIUM CHLORIDE 0.9% 500 ML IV ONE (12:00)
[2023-01-27 16:14] LABS: CREATINE KINASE 75 IU/L (26-192)
[2023-01-27] MEDS: ACETAMINOPHEN 325MG TABLET PO PRN (20:18)
[2023-01-27 22:37] LABS: CLARITY URINE CLEAR (CLEAR); COLOR URINE YELLOW (YELLOW); KETONES URINE NEGATIVE (NEGATIVE); LEUKOCYTE ESTERASE URINE TRACE (NEGATIVE); NITRITE URINE NEGATIVE (NEGATIVE); OCCULT BLOOD URINE NEGATIVE (NEGATIVE); PROTEIN URINE 1+ (NEGATIVE); SPECIFIC GRAVITY URINE 1.012 (1.005-1.030); UROBILINOGEN URINE 0.2 E.U./dL (0.2-1.0)
[2023-01-28 04:00] VITALS: BP 101/49
[2023-01-28 05:22] VITALS: BP 139/58
[2023-01-28] MEDS: DILTIAZEM HCL 90MG TABLET PO SCH ×3 (05:29→17:51)
[2023-01-28 06:30] VITALS: BP 148/58
[2023-01-28] MEDS: HYDRALAZINE HCL 100MG TABLET PO SCH ×3 (06:33→22:00)
[2023-01-28 07:29] LABS: BASOPHILS % 0.2 % (0.0-2.0); EOSINOPHILS % 0.5 % (0.0-5.0); HEMATOCRIT. 23.6 % (36.0-48.0); HEMOGLOBIN. 7.9 g/dL (12.0-16.0); LYMPHOCYTES % 8.3 % (20.0-50.0); MEAN CORPUSCULAR HEMOGLOBIN 28.1 pg (28.0-32.0); MEAN PLATELET VOLUME 9.6 fl (7.4-10.4); MONOCYTES % 12.5 % (2.0-8.0); NEUTROPHILS % 78.5 % (40.0-76.0); PLATELET 286 x1000/uL (130-400); RED BLOOD CELL COUNT 2.81 mill/uL (4.2-5.4); RED CELL DISTRIBUTION WIDTH 16.5 % (11.6-14.6)
[2023-01-28] MEDS: LIDOCAINE 5% PATCH TOP SCH ×2 (09:00→09:17)
[2023-01-28] MEDS: FLUOXETINE HCL 10 MG CAPSULE PO SCH (09:00)
[2023-01-28] MEDS: QUETIAPINE FUMARATE 50MG TABLET PO SCH ×2 (09:14→21:00)
[2023-01-28] MEDS: ASPIRIN 81MG TABLET PO SCH (09:14)
[2023-01-28] MEDS: FAMOTIDINE 20MG/2ML VIAL IV SCH (09:15)
[2023-01-28] MEDS: AMLODIPINE 10MG TABLET PO SCH ×2 (09:15→17:51)
[2023-01-28] MEDS: ENOXAPARIN 30MG/0.3ML SYR SUBCUT SCH (09:16)
[2023-01-28] MEDS: HYDROCODONE/ACETAMINOPHEN 5/325MG TABLET PO PRN (09:28)
[2023-01-28] MEDS ORDERED: POTASSIUM CHLORIDE 20MEQ/PACKET PO NR (09:45)
[2023-01-28 12:00] VITALS: BP 114/48
[2023-01-28 16:00] VITALS: BP 144/60
[2023-01-28] MEDS: ACETAMINOPHEN 325MG TABLET PO PRN (17:51)
[2023-01-28 20:00] VITALS: BP 142/59
[2023-01-29] VITALS: BP 105/69
[2023-01-29 04:00] VITALS: BP 121/50
[2023-01-29] MEDS: HYDRALAZINE HCL 100MG TABLET PO SCH ×3 (07:10→21:57)
[2023-01-29] MEDS: DILTIAZEM HCL 90MG TABLET PO SCH ×4 (07:10→17:25)
[2023-01-29 07:20] LABS: BASOPHILS % 0.2 % (0.0-2.0); EOSINOPHILS % 0.6 % (0.0-5.0); HEMATOCRIT. 23.8 % (36.0-48.0); HEMOGLOBIN. 7.8 g/dL (12.0-16.0); LYMPHOCYTES % 8.7 % (20.0-50.0); MEAN CORPUSCULAR HEMOGLOBIN 27.5 pg (28.0-32.0); MEAN CORPUSCULAR VOLUME 83.5 fL (81.0-99.0); MEAN PLATELET VOLUME 10.2 fl (7.4-10.4); MONOCYTES % 11.9 % (2.0-8.0); NEUTROPHILS % 78.6 % (40.0-76.0); PLATELET 306 x1000/uL (130-400); RED BLOOD CELL COUNT 2.85 mill/uL (4.2-5.4); RED CELL DISTRIBUTION WIDTH 16.6 % (11.6-14.6)
[2023-01-29 08:00] VITALS: BP 142/59
[2023-01-29] MEDS: FLUOXETINE HCL 10 MG CAPSULE PO SCH (09:00)
[2023-01-29] MEDS: ENOXAPARIN 30MG/0.3ML SYR SUBCUT SCH (09:00)
[2023-01-29] MEDS: QUETIAPINE FUMARATE 50MG TABLET PO SCH ×2 (09:00→21:58)
[2023-01-29] MEDS: AMLODIPINE 10MG TABLET PO SCH ×2 (09:00→17:26)
[2023-01-29] MEDS: FAMOTIDINE 20MG/2ML VIAL IV SCH (09:00)
[2023-01-29] MEDS: ASPIRIN 81MG TABLET PO SCH (09:00)
[2023-01-29] MEDS: LIDOCAINE 5% PATCH TOP SCH (09:00)
[2023-01-29] MEDS ORDERED: POTASSIUM CHLORIDE 20MEQ/PACKET PO NR (09:00)
[2023-01-29 12:00] VITALS: BP 132/57
[2023-01-29 15:57] VITALS: BP 128/56
[2023-01-29 20:00] VITALS: BP 138/67
[2023-01-29] MEDS: HYDROCODONE/ACETAMINOPHEN 5/325MG TABLET PO PRN (22:46)
[2023-01-30] VITALS: BP 128/56
[2023-01-30] MEDS: DILTIAZEM HCL 90MG TABLET PO SCH ×3 (00:04→12:36)
[2023-01-30 04:00] VITALS: BP 122/73
[2023-01-30 06:18] LABS: BASOPHILS % 0.4 % (0.0-2.0); HEMATOCRIT. 23.1 % (36.0-48.0); HEMOGLOBIN. 7.5 g/dL (12.0-16.0); LYMPHOCYTES % 22.1 % (20.0-50.0); MEAN CORPUSCULAR VOLUME 83.5 fL (81.0-99.0); MONOCYTES % 14.9 % (2.0-8.0); NEUTROPHILS % 61.6 % (40.0-76.0); PLATELET 298 x1000/uL (130-400); RED BLOOD CELL COUNT 2.77 mill/uL (4.2-5.4); RED CELL DISTRIBUTION WIDTH 16.5 % (11.6-14.6)
[2023-01-30] MEDS: HYDRALAZINE HCL 100MG TABLET PO SCH ×2 (06:20→14:32)
[2023-01-30 08:00] VITALS: BP 133/53
[2023-01-30] MEDS: FLUOXETINE HCL 10 MG CAPSULE PO SCH (08:39)
[2023-01-30] MEDS: QUETIAPINE FUMARATE 50MG TABLET PO SCH (08:39)
[2023-01-30] MEDS: ENOXAPARIN 30MG/0.3ML SYR SUBCUT SCH (08:40)
[2023-01-30] MEDS: AMLODIPINE 10MG TABLET PO SCH (08:40)
[2023-01-30] MEDS: FAMOTIDINE 20MG/2ML VIAL IV SCH (08:43)
[2023-01-30] MEDS: ASPIRIN 81MG TABLET PO SCH (08:43)
[2023-01-30] MEDS: LIDOCAINE 5% PATCH TOP SCH (08:43)
[2023-01-30 12:00] VITALS: BP 104/46
[2023-01-30] MEDS ORDERED: ALBUTEROL (0.083%) 2.5MG/3ML NEB HHN PRN (13:15)
[2023-01-30] MEDS ORDERED: IPRATROPIUM BROMIDE (0.02%) 0.5MG/2.5ML NEB HHN PRN (13:15)
[2023-01-30] MEDS ORDERED: IPRATROPIUM/ALBUTEROL 0.5-3(2.5)MG/3ML NEB HHN PRN (13:15)
[2023-01-30 17:36] VITALS: BP 130/59
[2023-01-31 07:10] LABS: HIV SCREEN 4G Non Reactive (Non Reactive)
== END 2023-01-30 21:48 | disposition home health service (06) | DRG 720 ==
LOC: ER 15:35 → EDBD 17:17 → MICUSO 17:17 → CVICU 23:50 → 7WST 01-21 19:07 → 5EST 01-25 13:01
PROVIDERS: ADMIT Internal Medicine; ATTEND Internal Medicine
PROC: 5A1955Z Respiratory Ventilation, Greater than 96 Consecutive Hours (ICD-10-PCS; principal; 2023-01-14)
PROC: 0BH17EZ Insertion of Endotracheal Airway into Trachea, Via Natural or Artificial Opening (ICD-10-PCS; 2023-01-14)
PROC: 0W9B30Z Drainage of Left Pleural Cavity with Drainage Device, Percutaneous Approach (ICD-10-PCS; 2023-01-14)
PROC: 0W9930Z Drainage of Right Pleural Cavity with Drainage Device, Percutaneous Approach (ICD-10-PCS; 2023-01-14)
PROC: 30233K1 Transfusion of Nonautologous Frozen Plasma into Peripheral Vein, Percutaneous Approach (ICD-10-PCS; 2023-01-14)
PROC: 02H633Z Insertion of Infusion Device into Right Atrium, Percutaneous Approach (ICD-10-PCS; 2023-01-17)
PROC: B548ZZA Ultrasonography of Superior Vena Cava, Guidance (ICD-10-PCS; 2023-01-17)
DX: A41.9 Sepsis, unspecified organism (principal); J96.00 Acute respiratory failure, unspecified whether with hypoxia or hypercapnia; J68.0 Bronchitis and pneumonitis due to chemicals, gases, fumes and vapors; N17.9 Acute kidney failure, unspecified; T79.7XXA Traumatic subcutaneous emphysema, initial encounter; E44.1 Mild protein-calorie malnutrition; T46.4X5A Adverse effect of angiotensin-converting-enzyme inhibitors, initial encounter; D64.9 Anemia, unspecified; E87.6 Hypokalemia; F14.10 Cocaine abuse, uncomplicated; T78.3XXA Angioneurotic edema, initial encounter; I16.1 Hypertensive emergency; F31.9 Bipolar disorder, unspecified; Z20.822 Contact with and (suspected) exposure to COVID-19; E86.9 Volume depletion, unspecified; F20.0 Paranoid schizophrenia; F43.10 Post-traumatic stress disorder, unspecified; G47.00 Insomnia, unspecified; X58.XXXA Exposure to other specified factors, initial encounter; Z78.1 Physical restraint status; Z91.14 Patient's other noncompliance with medication regimen; Z79.899 Other long term (current) drug therapy; Y93.89 Activity, other specified; Y92.89 Other specified places as the place of occurrence of the external cause; Y99.8 Other external cause status
CPT/HCPCS: 31500; 36415; 36573; 36600; 71045; 71250; 76770; 80048; 80053; 80202; 80305; 81003; 82375; 82550; 82805; 83605; 83735; 83880; 83970; 84100; 84145; 84484; 85025; 85027; 85651; 86160; 86161; 86850; 86900; 86927; 87070; 87389; 87426; 92610; 93005; 93306; 93970; 94002; 94003; 94640; 97116; 97162; 97166; 97530; 97535; 99291; A6261; C1725; J0330; J0360; J0456; J0696; J1170; J1200; J1650; J2060; J2250; J2270; J2405; J2543; J2704; J2920; J2930; J3010; J3370; J3480; J3490; J7030; J7050; J7060; P9017